=== PATIENT | female | born 1975 | race Caucasian/White ===

== ENCOUNTER 2023-10-01 15:44 | Emergency (ER) | payer MEDICAID ==
[~2023-10-01] VITALS: Ht 157.5 cm; Wt 84.4 kg
[2023-10-01 16:06] VITALS: BP 130/58; PULSE 58; RESP 18; TEMP 98.2; O2SAT 100
[2023-10-01] MEDS ORDERED: IBUP-2213 PO (16:30)
[2023-10-01] MEDS ORDERED: COROTSOL RIGHT EAR (16:30)
== END 2023-10-01 16:45 | disposition home or self-care (01) ==
LOC: MED 15:44
DX: H60.501 Unspecified acute noninfective otitis externa, right ear (principal); Z79.899 Other long term (current) drug therapy; Z88.0 Allergy status to penicillin
CPT/HCPCS: 99283